=== PATIENT | male | born 1955 | race Caucasian/White ===

== ENCOUNTER 2024-08-13 17:31 | Inpatient (IN) ==
--- NOTE | 2024-08-13 17:58 | Emergency Department Note ---
Impression & Plan Stroke-like symptoms ED Provider Note HISTORY OF PRESENT ILLNESS: Patient is a 68-year-old male presenting with right sided weakness and dysphagia. Patient reports that 4 days ago he started having some shortness of breath and in the evening 4 days ago he started noticing some difficulties with using his right upper extremity. He states that he had a headache and pain behind his left eye at the time and took 2 Tylenol and went to bed. He woke up and was having difficulties moving his right upper and right lower extremity. He is also had difficulties getting words out over the last 3 days. He states that he has had difficulty swallowing as he feels like his secretions get stuck in his throat and he ends up bringing them back up. He has been slurring his speech per family at bedside. Patient denies ever having a stroke before. Denies any DVT or PE history. Denies any history of cardiac stents. He is not on any anticoagulation or antiplatelet therapy. He was brought to the ER by family, as they grew concerned due to his persistent symptoms. Patient denies any recent head injuries or chiropractic manipulation of his neck. Denies any recent fevers. He reports he is felt short of breath for the last 4 days since all of this started. ROS: as above PHYSICAL EXAM: Constitutional: Patient appears in no acute distress. HENT: Head: Normocephalic and atraumatic. Eyes: EOMI, PERRL Mouth/Throat: Mucous membranes moist. Neck: Trachea midline. Neck supple. Cardiovascular: RRR, No murmurs, rubs or gallops. Intact distal pulses. Pulmonary/Chest: No respiratory distress. Breath sounds clear and equal bilaterally. No wheezes or rales. Abdominal: Abdomen soft, no tenderness, rebound or guarding. Musculoskeletal: No edema, tenderness or deformity noted. Skin: Warm and dry. No rash, erythema, pallor or cyanosis Psychiatric: Appropriate mood and affect for situation. Neurological: Alert and keenly responsive. Slurred speech. Left lower facial droop. RUE with drift. RLE with significant drift to bed. Sensation in RLE decreased as compared to LLE. MDM: - Vitals signs showed hypertension and tachycardia - History obtained via patient. History as above. - Chronic conditions affecting care: none - Differential diagnoses include, but are not limited to: CVA; intracranial hemorrhage; ACS; viral syndrome; dysrhythmia; electrolyte abnormality - Order placed for continuous cardiac monitoring. At this time, monitor showed rate of 105 bpm with normal sinus rhythm, per my interpretation. - External medical records reviewed. - EKG interpreted by myself showed normal sinus rhythm. Rate 98 bpm. QT 354. No acute ischemic changes - Laboratory workup interpreted by myself showed normal WBC; normal PT/INR; slight hyponatremia (Na 135); hyperglycemia (glucose 248); normal procalcitonin; normal troponin - CXR negative for pneumonia, per my interpretation. - CT head wo contrast negative for acute pathology, per radiology - CTA head/neck negative for acute pathology, per radiology. - UA negative for infection - Patient's examination is significantly concerning for stroke. However, he is 3 days post onset of symptoms. As such, he is not a tPA or TNK candidate. Will admit to hospital service for further workup. An MRI of the brain was ordered. Patient was hypertensive during his stay in the emergency department. Given that he is 3 days out from his presumed stroke, he was given 10 mg of IV hydralazine for further blood pressure management. - Discussion was had with insurance case manager about patient's case and need for admission - Hospitalist, Dr. Thomson, consulted for admission - [facility] ASSESSMENT AND PLAN: Diagnosis: Strokelike symptoms Plan: Admit Past Med/Surg History Problem List (Updated 08/13/24 @ 21:39 by Cinda Atkins MD) Stroke-like symptoms (Acute) Fracture of right tibial plateau (Acute) Social History Smoking Status: Former smoker Preferred Language: [place] Feels Safe at Home: Yes Allergies Allergies Allergy/AdvReac Type Severity Reaction Status Date / Time No Known Allergies Allergy Unknown Verified 08/13/24 20:01 Home Meds Home Medications Medication Instructions Recorded Confirmed No Known Home Medications 08/13/24 08/13/24 Results & Data (ED) Vital Signs Vital Signs - 24 hr 08/13/24 17:33 08/13/24 17:34 08/13/24 17:43 Temperature 36.6 C Temperature Source Temporal Artery Scan Pulse Rate 106 H Pulse Rate [Apical] Pulse Rate from SpO2 Sensor Pulse Rhythm Regular Pulse Strength Normal Respiratory Rate 20 Respiratory Effort / Characteristics Non-Labored Respiratory Depth Normal Respiratory Pattern Regular Blood Pressure 169/103 H 192/111 H Blood Pressure [Left Arm] Blood Pressure Mean 125 146 Blood Pressure Mean [Left Arm] Blood Pressure Position Sitting Pulse Oximetry 96 Oxygen Delivery Method Room Air Room Air Sepsis Recent Fever Within 48 Hours No Sepsis New/Unexplained Change in Mental Status No Sepsis Action Taken by Nursing No Action Required 08/13/24 17:43 08/13/24 17:45 08/13/24 17:48 Temperature Temperature Source Pulse Rate 99 H Pulse Rate [Apical] Pulse Rate from SpO2 Sensor 99 H Pulse Rhythm Pulse Strength Respiratory Rate 26 H Respiratory Effort / Characteristics Respiratory Depth Respiratory Pattern Blood Pressure 192/111 H Blood Pressure [Left Arm] Blood Pressure Mean 146 Blood Pressure Mean [Left Arm] Blood Pressure Position Pulse Oximetry 95 Oxygen Delivery Method Room Air Sepsis Recent Fever Within 48 Hours Sepsis New/Unexplained Change in Mental Status Sepsis Action Taken by Nursing 08/13/24 17:59 08/13/24 18:00 08/13/24 18:42 Temperature Temperature Source Pulse Rate 96 H 95 H 71 Pulse Rate [Apical] Pulse Rate from SpO2 Sensor 95 H 81 Pulse Rhythm Pulse Strength Respiratory Rate 31 H 14 Respiratory Effort / Characteristics Respiratory Depth Respiratory Pattern Blood Pressure Blood Pressure [Left Arm] Blood Pressure Mean Blood Pressure Mean [Left Arm] Blood Pressure Position Pulse Oximetry 94 93 Oxygen Delivery Method Room Air Sepsis Recent Fever Within 48 Hours Sepsis New/Unexplained Change in Mental Status Sepsis Action Taken by Nursing 08/13/24 21:23 Temperature Temperature Source Pulse Rate Pulse Rate [Apical] 76 Pulse Rate from SpO2 Sensor Pulse Rhythm Pulse Strength Respiratory Rate 18 Respiratory Effort / Characteristics Non-Labored Spontaneous Respiratory Depth Normal Respiratory Pattern Regular Blood Pressure Blood Pressure [Left Arm] 186/105 H Blood Pressure Mean Blood Pressure Mean [Left Arm] 132 Blood Pressure Position Pulse Oximetry 96 Oxygen Delivery Method Room Air Sepsis Recent Fever Within 48 Hours Sepsis New/Unexplained Change in Mental Status Sepsis Action Taken by Nursing Laboratory Data 08/13/24 17:58 08/13/24 17:58 Lab Results 08/13/24 08/13/24 08/13/24 Range/Units 17:58 18:00 21:06 WBC 7.75 (4.8-10.8) K/ul RBC 5.12 (4.70-6.10) M/uL Hgb 15.4 (14.0-18.0) g/dl POC Hgb 15.6 (14.0-18.0) g/dl Hct 44.0 (42.0-52.0) % POC Hct 46 (42-52) % MCV 85.9 (80.0-100.0) fL MCH 30.1 (25.0-34.0) pg MCHC 35.0 (32.0-36.0) g/dL RDW Std Deviation 39.8 (36.4-46.3) fL RDW Coeff of Candace 12.6 (11.5-14.5) % Plt Count 194 (130-400) K/uL MPV 9.5 (9.4-12.4) fL Immature Gran % (Auto) 0.3 % Neut % (Auto) 53.2 % Lymph % (Auto) 34.6 % [place] % (Auto) 9.5 % Eos % (Auto) 1.2 % Baso % (Auto) 1.2 % Neut # (Auto) 4.13 (1.40-6.50) K/uL Lymph # (Auto) 2.68 (1.20-3.40) K/uL [place] # (Auto) 0.74 H (0.11-0.59) K/uL Eos # (Auto) 0.09 (0.00-0.50) K/uL Baso # (Auto) 0.09 (0.00-0.20) K/uL Immature Gran # (Auto) 0.02 (0.01-0.20) K/uL PT 10.8 (9.0-12.0) Seconds INR 1.0 (0.9-1.1) POC Sodium 138 (135-144) mmol/L Sodium 135 L (136-145) mmol/L POC Potassium 3.6 (3.3-5.0) mmol/L Potassium 3.5 (3.5-5.1) mmol/L POC Chloride 102 (101-112) mmol/L Chloride 101 (98-107) mmol/L Carbon Dioxide 24 (21-32) mmol/L POC Total CO2 24 (24-31) mmol/L Anion Gap 10 (3-11) POC Anion Gap 16.0 (16-25) mmol/L POC BUN 12 (7-18) mg/dl BUN 13 (6-23) mg/dl Creatinine 0.81 (0.6-1.4) mg/dl POC Creatinine 0.8 (0.6-1.3) mg/dl Est Cr Clr Drug Dosing Not Reportable Est GFR ( Amer) 106.6 ml/min Est GFR (Non-Af Amer) 92.0 ml/min BUN/Creatinine Ratio 16.0 (10-20) Glucose 248 H (70-99(Fasting)) mg/dl POC Glucose (other) 253 H (70-99) mg/dl Calcium 9.2 (8.6-10.3) mg/dl POC Ioniz Calcium [place] 1.13 (1.12-1.32) mmol/l Magnesium 1.8 (1.7-2.4) mg/dl Total Bilirubin 0.6 (0.2-1.0) mg/dl AST 21 (13-39) U/L ALT 24 (7-52) U/L Alkaline Phosphatase 75 (34-104) U/L Troponin I High Sens 6.0 (0-20) pg/ml Total Protein 8.2 (6.0-8.3) gm/dl Albumin 4.2 (3.4-5.0) gm/dl Globulin 4.0 (2.5-4.0) gm/dl Albumin/Globulin Ratio 1.1 (0.9-2) Procalcitonin < 0.02 (0-0.5) ng/ml Urine Color Yellow Urine Appearance Clear (Clear) Urine pH 5.5 (4.5-7.5) Ur Specific [place] > 1.045 H (1.000-1.030) Urine Protein Negative (Negative) Urine Glucose (UA) Negative (Negative) Urine Ketones Negative (Negative) Urine Blood Negative (Negative) Urine Nitrite Negative (Negative) Urine Bilirubin Negative (Negative) Urine Urobilinogen Negative (Negative) Ur Leukocyte Esterase Negative (Negative) Administered Medications Discontinued Medications Hydralazine HCl (Hydralazine Hcl 20 Mg/Ml Vial) 10 mg IV NOW STA Stop: 08/13/24 20:45 Last Admin: 08/13/24 21:20 Dose: 10 mg Documented By: DARIN Ioversol (Optiray 320 125ml) 119 ml IV ONCE ONE Stop: 08/13/24 19:12 Last Admin: 08/13/24 19:12 Dose: 119 ml Documented By: CHEY Imaging Data Radiologist's Impression: Chest X-Ray 08/13/24 17:45 XR chest 1V portable HISTORY: 68 years-old Male Dyspnea acute shortness of breath COMPARISON: 07/20/2015 TECHNIQUE: AP view of the chest FINDINGS: Cardiac silhouette is enlarged. Chronic interstitial coarsening. Calcified granuloma in the lateral right midlung. Emphysema. No pneumothorax, pleural effusion or lobar airspace consolidation. Chronic appearing mid left clavicular fracture deformity. IMPRESSION: 1. Cardiomegaly without overt pulmonary edema. 2. Chronic interstitial lung disease. 3. Prior granulomatous disease. ACT 112: Negative or not required by law. The above report was generated using voice recognition software. It may contain grammatical, syntax or spelling errors. Electronically signed by: oRe Miller M.D. 08/13/2024 6:[address] 08/13/24 17:45 Exam(s): CT HEAD Without Contrast EXAM: CT Head Without Intravenous Contrast CLINICAL HISTORY: Reason for exam: R sided weakness. TECHNIQUE: Axial computed tomography images of the head/brain without intravenous contrast. CTDI is 37.42 mGy and DLP is 702.46 mGy-cm. Automated exposure control was utilized for the study. A dose lowering technique was utilized adhering to the principles of ALARA. COMPARISON: None FINDINGS: Brain: No acute infarct or hemorrhage identified. No extra-axial fluid collection. No mass effect or midline shift. Scattered areas of hypoattenuation in the supratentorial white matter likely represent chronic small vessel ischemic changes. Calcifications in the basal ganglia. Ventricles and sulci: Prominence of the ventricles and sulci is likely secondary to cerebral volume loss. Bones: Normal. No bony lesion or acute fracture. Subcutaneous tissues: Normal. Sinuses: Polyp versus mucous retention cyst in the right maxillary sinus. Mastoid air cells: Normal. Orbits: Grossly unremarkable. Other: Atherosclerotic calcifications in the intracranial vasculature. IMPRESSION: 1. No acute intracranial abnormality. Further evaluation could be performed with MRI if clinically indicated. 2. Chronic small vessel ischemic changes and cerebral volume loss. Electronically signed by: Feliciano Cobb M.D. 08/13/24 19:49 PM Head CTA 08/13/24 17:54 Exam(s): CTA HEAD With Contrast IV Amt: 119ml EXAM: CT Angiography Head With Intravenous Contrast CLINICAL HISTORY: Reason for exam: stroke sx - R weakness; L facial droop; dysphagia. TECHNIQUE: Axial computed tomographic angiography images of the head with intravenous contrast. CTDI is 20.76 mGy and DLP is 10.38 mGy-cm. Automated exposure control was utilized for the study. A dose lowering technique was utilized adhering to the principles of ALARA. CONTRAST: Patient received 119ml of IV contrast COMPARISON: None FINDINGS: Right internal carotid artery: Atherosclerotic changes of the distal right ICA. No significant stenosis. No aneurysm. Right anterior cerebral artery: Unremarkable. No occlusion or significant stenosis. No aneurysm. Right middle cerebral artery: Unremarkable. No occlusion or significant stenosis. No aneurysm. Right posterior cerebral artery: Unremarkable. No occlusion or significant stenosis. No aneurysm. Right vertebral artery: Atherosclerotic calcification in the V4 segment of the right vertebral artery. No significant stenosis. Left internal carotid artery: Atherosclerotic changes of the distal left ICA. No significant stenosis. No aneurysm. Left anterior cerebral artery: Unremarkable. No occlusion or significant stenosis. No aneurysm. Left middle cerebral artery: Unremarkable. No occlusion or significant stenosis. No aneurysm. Left posterior cerebral artery: Unremarkable. No occlusion or significant stenosis. No aneurysm. Left vertebral artery: Atherosclerotic calcifications of the V4 segment of the left vertebral artery. No significant stenosis. Basilar artery: Unremarkable. No occlusion or significant stenosis. No aneurysm. Sinuses: Polyp versus mucous retention cyst in the right maxillary sinus. IMPRESSION: No significant stenosis, occlusion, or aneurysm in the central or large intracranial arteries. Electronically signed by: Feliciano Cobb M.D. 08/13/24 21:32 PM Neck CTA 08/13/24 17:54 Exam(s): CTA NECK With Contrast IV Amt: 119ml EXAM: CT Angiography Neck With Intravenous Contrast CLINICAL HISTORY: Reason for exam: stroke sx - R weakness; L facial droop; dysphagia. TECHNIQUE: Routine carotid CT angiography protocol was performed with intravenous contrast. NASCET criteria using the distal ICAs for comparison were used for evaluation of stenoses. CTDI is 13.87 mGy and DLP is 534.41 mGy-cm. Automated exposure control was utilized for the study. A dose lowering technique was utilized adhering to the principles of ALARA. CONTRAST: Patient received 119ml of IV contrast COMPARISON: None FINDINGS: VASCULATURE: Right common carotid artery: Unremarkable. No occlusion or significant stenosis. No dissection. Right internal carotid artery: Atherosclerotic calcifications of the right carotid bulb and proximal right ICA. No significant stenosis. No dissection. Right external carotid artery: Unremarkable. No occlusion. Right vertebral artery: Unremarkable. No occlusion or significant stenosis. No dissection. Left common carotid artery: Unremarkable. No occlusion or significant stenosis. No dissection. Left internal carotid artery: Mild atherosclerotic calcification in the proximal left ICA. No significant stenosis. No dissection. Left external carotid artery: Unremarkable. No occlusion. Left vertebral artery: Unremarkable. No occlusion or significant stenosis. No dissection. Aorta: Mild atherosclerotic changes in the aorta. NECK: Bones/joints: Degenerative changes of the spine. No acute fracture. Soft tissues: Unremarkable. Lung apices: Atelectasis and paraseptal emphysematous changes in the visualized upper lungs. CAROTID STENOSIS REFERENCE USING NASCET CRITERIA: % ICA stenosis = (1 - narrowest ICA diameter/diameter of distal cervical ICA) x 100. Mild - <50% stenosis. Moderate - 50-69% stenosis. Severe - 70-94% stenosis. Near occlusion - 95-99% stenosis. Occluded - 100% stenosis. IMPRESSION: No significant stenosis, occlusion, or dissection. Electronically signed by: Feliciano Cobb M.D. 08/13/24 21:30 PM Discharge Plan Visit Data Chief Complaint: Shortness of Breath/Dyspnea Stated Complaint: SOB/WEAKNESS RT SIDE ED Provider: Cinda Atkins Discharge Problem: Stroke-like symptoms Forms Stand Alone Forms: My [employer] Prescriptions Prescriptions: No Action No Known Home Medications Referrals Referrals: Amy Ramsey MD [Outside Practitioners] -
[2024-08-13 18:13] LABS: iSTAT Creatinine 0.8 mg/dl (0.6-1.3); iSTAT Hemoglobin 15.6 g/dl (14.0-18.0); iSTAT Ionized Calcium 1.13 mmol/l (1.12-1.32); iSTAT Potassium 3.6 mmol/L (3.3-5.0)
[2024-08-13 18:33] LABS: Basophils # (auto) 0.09 K/uL (0.00-0.20); Basophils % (auto) 1.2 %; Eosinophils # (auto) 0.09 K/uL (0.00-0.50); Eosinophils % (auto) 1.2 %; Hemoglobin 15.4 g/dl (14.0-18.0); Immature Granulocytes # (auto) 0.02 K/uL (0.01-0.20); Immature Granulocytes % (auto) 0.3 %; Lymphocytes # (auto) 2.68 K/uL (1.20-3.40); Lymphocytes % (auto) 34.6 %; Mean Corpuscular Hemoglobin 30.1 pg (25.0-34.0); Mean Corpuscular Volume 85.9 fL (80.0-100.0); Mean Platelet Volume 9.5 fL (9.4-12.4); Monocytes # (auto) 0.74 K/uL (0.11-0.59); Monocytes % (auto) 9.5 %; Neutrophils # (auto) 4.13 K/uL (1.40-6.50); Neutrophils % (auto) 53.2 %; Platelet Count 194 K/uL (130-400); RDW Coefficient of Variation 12.6 % (11.5-14.5); RDW Standard Deviation 39.8 fL (36.4-46.3); Red Blood Count 5.12 M/uL (4.70-6.10); White Blood Count 7.75 K/ul (4.8-10.8)
--- NOTE | 2024-08-13 18:48 | XRay Report ---
XR chest 1V portable HISTORY: 68 years-old Male Dyspnea acute shortness of breath COMPARISON: 07/20/2015 TECHNIQUE: AP view of the chest FINDINGS: Cardiac silhouette is enlarged. Chronic interstitial coarsening. Calcified granuloma in the lateral r ight midlung. Emphysema. No pneumothorax, pleural effusion or lobar airspace consolidation. Chronic a ppearing mid left clavicular fracture deformity. IMPRESSION: 1. Cardiomegaly without overt pulmonary edema. 2. Chronic interstitial lung disease. 3. Prior granulomatous disease. ACT 112: Negative or not required by law. The above report was generated using voice recognition software. It may contain grammatical, syntax o r spelling errors. Electronically signed by: Roe Miller M.D. 08/13/2024 6:47 PM
[2024-08-13 18:49] LABS: Alanine Aminotransferase 24 U/L (7-52); Albumin Globulin Ratio 1.1 (0.9-2); Albumin Level 4.2 gm/dl (3.4-5.0); Alkaline Phosphatase 75 U/L (34-104); Anion Gap 10 (3-11); Aspartate Aminotransferase 21 U/L (13-39); Bilirubin,Total 0.6 mg/dl (0.2-1.0); Blood Urea Nitrogen 13 mg/dl (6-23); Calcium 9.2 mg/dl (8.6-10.3); Carbon Dioxide 24 mmol/L (21-32); Chloride 101 mmol/L (98-107); Est GFR (African American) 106.6 ml/min; Glucose 248 mg/dl (70-99(Fasting)); Magnesium 1.8 mg/dl (1.7-2.4); Potassium 3.5 mmol/L (3.5-5.1); Sodium 135 mmol/L (136-145); Total Protein 8.2 gm/dl (6.0-8.3)
[2024-08-13 19:05] LABS: Prothrombin Time 10.8 Seconds (9.0-12.0)
[2024-08-13] MEDS: OPTIRAY 320 125ml IV ONE (19:12)
--- NOTE | 2024-08-13 19:50 | CT Scan Report ---
Exam(s): CT HEAD Without Contrast EXAM: CT Head Without Intravenous Contrast CLINICAL HISTORY: Reason for exam: R sided weakness. TECHNIQUE: Axial computed tomography images of the head/brain without intravenous contrast. CTDI is 37.42 mGy and DLP is 702.46 mGy-cm. Automated exposure control was utilized for the study. A dose lowering technique was utilized adhering to the principles of ALARA. COMPARISON: None FINDINGS: Brain: No acute infarct or hemorrhage identified. No extra-axial fluid collection. No mass effect or midline shift. Scattered areas of hypoattenuation in the supratentorial white matter likely represent chronic small vessel ischemic changes. Calcifications in the basal ganglia. Ventricles and sulci: Prominence of the ventricles and sulci is likely secondary to cerebral volume loss. Bones: Normal. No bony lesion or acute fracture. Subcutaneous tissues: Normal. Sinuses: Polyp versus mucous retention cyst in the right maxillary sinus. Mastoid air cells: Normal. Orbits: Grossly unremarkable. Other: Atherosclerotic calcifications in the intracranial vasculature. IMPRESSION: 1. No acute intracranial abnormality. Further evaluation could be performed with MRI if clinically indicated. 2. Chronic small vessel ischemic changes and cerebral volume loss. Electronically signed by: Feliciano Cobb M.D. 08/13/24 19:49 PM
--- NOTE | 2024-08-13 21:09 | History & Physical Report ---
Date of Service August 13, 2024 Assessment & Plan (1) Stroke-like symptoms: Plan: CT Head without acute stroke. CTA Head and Neck without significant stenosis. MRI pending. History and physical consistent with left sided stroke with right sided deficits. Outside of the window for thrombolysis. Given ASA 324 chew and Brilinta load. DAPT for 21 days. Start high intensity statin. Likely will need blood sugar control as well as blood pressure control. Start olmesartan 10 mg can up-titrate for a goal BP < 130/90. f/u MRI, consider neurology consult based on results lipids, HbA1c ordered dysphagia screen, LEAD INSPECTOR consult SQ insulin ordered, goal 140-180 PT/OT ordered, likely will need rehab placement (2) IFG (impaired fasting glucose): Plan: See above (3) Hypertension: Plan: See above Plan Code status: full DVT ppx: ASA Brilinta FENGI: NPO until passes dysphagia screening, then heart healthy diet, mIVF with LR @ 100 mL/hr x 1L Dispo: PCU/tele History of Present Illness Chief Complaint: stroke like symptoms Primary Care Provider: NO PCP 68 y/o male with a PMHx of Crohn's disease s/p partial colectomy and colostomy reversal here for evaluation of right sided deficits. Patient with right sided weakness, facial droop, headache, trouble swallowing/speaking, and "eye cold" started Sunday. Last known well was earlier that day. Has had some improvement in right arm symptoms and facial droop - still present but slightly improved. Unable to lift right leg. Sensation intact. Headache and "eye cold" have resolved. Patient stopped smoking and drinking about 20 years ago. Has not seen a doctor in some time. Has known hypertension which has not been treated with any medications. Allergies Allergy/AdvReac Type Severity Reaction Status Date / Time No Known Allergies Allergy Unknown Verified 08/13/24 20:01 Home Medications Medication Instructions Recorded Confirmed Type No Known Home Medications 08/13/24 08/13/24 History Past Med/Surg History Problem List (Updated 08/13/24 @ 22:12 by Luz Stinson MD) Hypertension IFG (impaired fasting glucose) Stroke-like symptoms (Acute) Fracture of right tibial plateau (Acute) Social History Smoking Status: Former smoker Preferred Language: Portuguese Feels Safe at Home: Yes Review of Systems 2 Review of Systems: See HPi Physical Exam 2 Physical Exam: Gen: well appearing patient in NAD, slight slur to speech HEENT: AT NC MMM Resp: CTAB no wheezing no increased work of breathing CV: RRR no m/r/g clinically well perfused Abd: soft, non-tender, non-distended MSK: no obvious deformities Skin: no rashes or bruising Neuro: speech is slightly slurred, does appear to be protecting his airway, PERRL, EOMI, able to puff cheeks, raise eyebrows, and smile with relative symmetry, slightly decreased right side, strength 0/5 RLE, 3.5/5 RUE, sensation intact, well perfused Psych: appropriate mood and affect Results & Data Results & Data Vital Signs (Past 12 Hours) Vital Signs Temp Pulse Resp BP Pulse Ox O2 Del Method 08/13/24 18:42 71 14 93 Room Air 08/13/24 18:00 95 H 31 H 94 08/13/24 17:59 96 H 08/13/24 17:48 99 H 26 H 95 08/13/24 17:45 Room Air 08/13/24 17:43 192/111 H 08/13/24 17:43 192/111 H 08/13/24 17:34 36.6 C 106 H 20 169/103 H 96 Room Air 08/13/24 17:33 Room Air Laboratory Results 08/13/24 17:58 08/13/24 17:58 Diagnostic Findings Chest X-Ray 08/13/24 17:45 FINDINGS: Cardiac silhouette is enlarged. Chronic interstitial coarsening. Calcified granuloma in the lateral right midlung. Emphysema. No pneumothorax, pleural effusion or lobar airspace consolidation. Chronic appearing mid left clavicular fracture deformity. IMPRESSION: 1. Cardiomegaly without overt pulmonary edema. 2. Chronic interstitial lung disease. 3. Prior granulomatous disease. ACT 112: Negative or not required by law. Head CT 08/13/24 17:45 FINDINGS: Brain: No acute infarct or hemorrhage identified. No extra-axial fluid collection. No mass effect or midline shift. Scattered areas of hypoattenuation in the supratentorial white matter likely represent chronic small vessel ischemic changes. Calcifications in the basal ganglia. Ventricles and sulci: Prominence of the ventricles and sulci is likely secondary to cerebral volume loss. Bones: Normal. No bony lesion or acute fracture. Subcutaneous tissues: Normal. Sinuses: Polyp versus mucous retention cyst in the right maxillary sinus. Mastoid air cells: Normal. Orbits: Grossly unremarkable. Other: Atherosclerotic calcifications in the intracranial vasculature. IMPRESSION: 1. No acute intracranial abnormality. Further evaluation could be performed with MRI if clinically indicated. 2. Chronic small vessel ischemic changes and cerebral volume loss. Head CTA 08/13/24 17:54 FINDINGS: Right internal carotid artery: Atherosclerotic changes of the distal right ICA. No significant stenosis. No aneurysm. Right anterior cerebral artery: Unremarkable. No occlusion or significant stenosis. No aneurysm. Right middle cerebral artery: Unremarkable. No occlusion or significant stenosis. No aneurysm. Right posterior cerebral artery: Unremarkable. No occlusion or significant stenosis. No aneurysm. Right vertebral artery: Atherosclerotic calcification in the V4 segment of the right vertebral artery. No significant stenosis. Left internal carotid artery: Atherosclerotic changes of the distal left ICA. No significant stenosis. No aneurysm. Left anterior cerebral artery: Unremarkable. No occlusion or significant stenosis. No aneurysm. Left middle cerebral artery: Unremarkable. No occlusion or significant stenosis. No aneurysm. Left posterior cerebral artery: Unremarkable. No occlusion or significant stenosis. No aneurysm. Left vertebral artery: Atherosclerotic calcifications of the V4 segment of the left vertebral artery. No significant stenosis. Basilar artery: Unremarkable. No occlusion or significant stenosis. No aneurysm. Sinuses: Polyp versus mucous retention cyst in the right maxillary sinus. IMPRESSION: No significant stenosis, occlusion, or aneurysm in the central or large intracranial arteries. Neck CTA 08/13/24 17:54 FINDINGS: VASCULATURE: Right common carotid artery: Unremarkable. No occlusion or significant stenosis. No dissection. Right internal carotid artery: Atherosclerotic calcifications of the right carotid bulb and proximal right ICA. No significant stenosis. No dissection. Right external carotid artery: Unremarkable. No occlusion. Right vertebral artery: Unremarkable. No occlusion or significant stenosis. No dissection. Left common carotid artery: Unremarkable. No occlusion or significant stenosis. No dissection. Left internal carotid artery: Mild atherosclerotic calcification in the proximal left ICA. No significant stenosis. No dissection. Left external carotid artery: Unremarkable. No occlusion. Left vertebral artery: Unremarkable. No occlusion or significant stenosis. No dissection. Aorta: Mild atherosclerotic changes in the aorta. NECK: Bones/joints: Degenerative changes of the spine. No acute fracture. Soft tissues: Unremarkable. Lung apices: Atelectasis and paraseptal emphysematous changes in the visualized upper lungs. IMPRESSION: No significant stenosis, occlusion, or dissection. Supervising Physician Co-Signing Physician Notes Attending addendum: I have physically seen this patient, have supervised the medical residents activities, and agree with the H&P unless as otherwise noted. Assessment and Plan: Strokelike symptoms- The patient will be admitted to telemetry for serial cardiac enzymes, serial EKG's, cardiac rhythm monitoring and a 2-D echocardiogram with Dopplers. CT head without contrast reveals no acute stroke, does show chronic small vessel disease CTA head without acute findings MRI brain ordered and pending Patient with left-sided stroke resulting in right-sided deficits Not a TNK candidate due to last known well time Aspirin and Brilinta as noted Stroke without thrombolytic order set Check a fasting lipid panel and Hemoglobin A1c LR at 100 mL/h x 1 L Consult PT/OT/speech and neurology Impaired fasting glucose/hyperglycemia- Glucose 248 on admission Check hemoglobin A1c Placed on Accu-Cheks with NovoLog SSI Hyperlipidemia- Check a fasting lipid panel To start high-dose statin Hypertension- To start on losartan as noted Resident Activity Tracking Resident Involvement: Resident Care Provided Care Provided: Adult [facility]
[2024-08-13] MEDS: hydrALAZINE HCL 20 MG/ML VIAL IV STA (21:20)
--- NOTE | 2024-08-13 21:31 | CT Scan Report ---
Exam(s): CTA NECK With Contrast IV Amt: 119ml EXAM: CT Angiography Neck With Intravenous Contrast CLINICAL HISTORY: Reason for exam: stroke sx - R weakness; L facial droop; dysphagia. TECHNIQUE: Routine carotid CT angiography protocol was performed with intravenous contrast. NASCET criteria using the distal ICAs for comparison were used for evaluation of stenoses. CTDI is 13.87 mGy and DLP is 534.41 mGy-cm. Automated exposure control was utilized for the study. A dose lowering technique was utilized adhering to the principles of ALARA. CONTRAST: Patient received 119ml of IV contrast COMPARISON: None FINDINGS: VASCULATURE: Right common carotid artery: Unremarkable. No occlusion or significant stenosis. No dissection. Right internal carotid artery: Atherosclerotic calcifications of the right carotid bulb and proximal right ICA. No significant stenosis. No dissection. Right external carotid artery: Unremarkable. No occlusion. Right vertebral artery: Unremarkable. No occlusion or significant stenosis. No dissection. Left common carotid artery: Unremarkable. No occlusion or significant stenosis. No dissection. Left internal carotid artery: Mild atherosclerotic calcification in the proximal left ICA. No significant stenosis. No dissection. Left external carotid artery: Unremarkable. No occlusion. Left vertebral artery: Unremarkable. No occlusion or significant stenosis. No dissection. Aorta: Mild atherosclerotic changes in the aorta. NECK: Bones/joints: Degenerative changes of the spine. No acute fracture. Soft tissues: Unremarkable. Lung apices: Atelectasis and paraseptal emphysematous changes in the visualized upper lungs. CAROTID STENOSIS REFERENCE USING NASCET CRITERIA: % ICA stenosis = (1 - narrowest ICA diameter/diameter of distal cervical ICA) x 100. Mild - <50% stenosis. Moderate - 50-69% stenosis. Severe - 70-94% stenosis. Near occlusion - 95-99% stenosis. Occluded - 100% stenosis. IMPRESSION: No significant stenosis, occlusion, or dissection. Electronically signed by: Feliciano Cobb M.D. 08/13/24 21:30 PM
[2024-08-13 21:32] LABS: Appearance Urine Clear (Clear); Bilirubin Urine Negative (Negative); Blood Urine Negative (Negative); Color Urine Yellow; Glucose Urine UA Negative (Negative); Ketones Urine Negative (Negative); Leukocyte Esterase Urine Negative (Negative); Nitrite Urine Negative (Negative); Protein Urine Negative (Negative); Specific Gravity Urine > 1.045 (1.000-1.030); Urobilinogen Urine Negative (Negative); pH Urine 5.5 (4.5-7.5)
--- NOTE | 2024-08-13 21:34 | CT Scan Report ---
Exam(s): CTA HEAD With Contrast IV Amt: 119ml EXAM: CT Angiography Head With Intravenous Contrast CLINICAL HISTORY: Reason for exam: stroke sx - R weakness; L facial droop; dysphagia. TECHNIQUE: Axial computed tomographic angiography images of the head with intravenous contrast. CTDI is 20.76 mGy and DLP is 10.38 mGy-cm. Automated exposure control was utilized for the study. A dose lowering technique was utilized adhering to the principles of ALARA. CONTRAST: Patient received 119ml of IV contrast COMPARISON: None FINDINGS: Right internal carotid artery: Atherosclerotic changes of the distal right ICA. No significant stenosis. No aneurysm. Right anterior cerebral artery: Unremarkable. No occlusion or significant stenosis. No aneurysm. Right middle cerebral artery: Unremarkable. No occlusion or significant stenosis. No aneurysm. Right posterior cerebral artery: Unremarkable. No occlusion or significant stenosis. No aneurysm. Right vertebral artery: Atherosclerotic calcification in the V4 segment of the right vertebral artery. No significant stenosis. Left internal carotid artery: Atherosclerotic changes of the distal left ICA. No significant stenosis. No aneurysm. Left anterior cerebral artery: Unremarkable. No occlusion or significant stenosis. No aneurysm. Left middle cerebral artery: Unremarkable. No occlusion or significant stenosis. No aneurysm. Left posterior cerebral artery: Unremarkable. No occlusion or significant stenosis. No aneurysm. Left vertebral artery: Atherosclerotic calcifications of the V4 segment of the left vertebral artery. No significant stenosis. Basilar artery: Unremarkable. No occlusion or significant stenosis. No aneurysm. Sinuses: Polyp versus mucous retention cyst in the right maxillary sinus. IMPRESSION: No significant stenosis, occlusion, or aneurysm in the central or large intracranial arteries. Electronically signed by: Feliciano Cobb M.D. 08/13/24 21:32 PM
--- NOTE | 2024-08-13 23:42 | XRay Report ---
Exam(s): XR ORBITS EXAM: XR Orbits Foreign Body CLINICAL HISTORY: Reason for exam: Screening for foreign body for MRI. TECHNIQUE: Frontal and lateral view(s) of the orbits. COMPARISON: None FINDINGS: Bones/joints: Unremarkable. No acute fracture. Sinuses: Opacity in the right maxillary sinus may represent mucosal thickening and/or fluid. Soft tissues: Unremarkable. No radiopaque foreign body identified. IMPRESSION: No radiopaque foreign body identified. Electronically signed by: Feliciano Cobb M.D. 08/13/24 23:41 PM
[2024-08-14] MEDS ORDERED: GLUCOSE 10 TAB/TUBE PO PRN (00:22)
[2024-08-14] MEDS ORDERED: GLUCOSE 40% GEL 15 GM TUBE PO PRN (00:22)
[2024-08-14] MEDS ORDERED: PHARMACY GLYCEMIC MGMT CONSULT PRN (00:22)
[2024-08-14] MEDS ORDERED: PHARMACIST DISCHARGE MED REC CONSULT PRN (00:22)
[2024-08-14] MEDS ORDERED: CARBOHYDRATES FOR HYPOGLYCEMIA PO PRN (00:22)
[2024-08-14] MEDS ORDERED: GLUCAGON FOR INJ 1 MG VIAL SQ PRN (00:22)
[2024-08-14] MEDS ORDERED: DEXTROSE 50% 50 ML SYRINGE IV PRN (00:22)
[2024-08-14] MEDS: METOPROLOL TARTRATE 1 MG/ML VIAL IV PRN (00:44)
[2024-08-14] MEDS: LACTATED RINGER'S 1,000 ML IV SCH (00:46)
[2024-08-14] MEDS: Patient's HEIGHT &/or WEIGHT Needed ONE (01:10)
--- NOTE | 2024-08-14 03:23 | Billing Data ---
Date of Service August 14, 2024 Coding Level of Care Code 21252 INT INP/OBS CARE
[2024-08-14] MEDS: ASPIRIN 81 MG CHEW PO ONE (03:25)
[2024-08-14] MEDS: INSULIN ASPART PER UNIT CHARGE SC SCH ×2 (03:26→17:37)
[2024-08-14] MEDS: TICAGRELOR 90 MG TAB PO ONE (03:26)
[2024-08-14] MEDS: hydrALAZINE HCL 20 MG/ML VIAL IV STA (06:14)
[2024-08-14] MEDS: ONDANSETRON INJ 2 MG/ML 2 ML VIAL IV STA (06:15)
--- NOTE | 2024-08-14 06:52 | Magnetic Resonance Report ---
Exam(s): MRI HEAD Without Contrast EXAM: MR Head Without Intravenous Contrast CLINICAL HISTORY: Reason for exam: stroke like symptoms. TECHNIQUE: Magnetic resonance images of the head/brain without intravenous contrast in multiple planes. COMPARISON: No relevant prior studies available. FINDINGS: Brain: Acute infarction of the left anterior mitra with associated decreased signal on ADC mapping and T2/FLAIR prolongation reflective of cytotoxic edema. No evidence of hemorrhage within the infarction bed. Blooming artifact noted within the central mitra with additional foci of T2/FLAIR prolongation which likely relate to areas of additional infarction/hemorrhage. Scattered areas of blooming artifact within the bilateral temporal lobes, left parietal lobe, and right basal ganglia, likely reflective of sequela of prior microangiopathic bleeds. Abnormal T2 signal in the deep cerebral white matter is consistent with small vessel ischemic/degenerative changes. The cerebral and cerebellar sulci are prominent consistent with brain atrophy. Ventricles: Unremarkable. No ventriculomegaly. Bones/joints: Unremarkable. No acute fracture. Sinuses: Unremarkable as visualized. Mastoid air cells: Unremarkable as visualized. No mastoid effusion. Orbits: Unremarkable as visualized. IMPRESSION: 1. Acute infarction of the left anterior mitra with associated decreased signal on ADC mapping and T2/FLAIR prolongation reflective of cytotoxic edema. No evidence of hemorrhage within the infarction bed. 2. Blooming artifact noted within the central mitra with additional foci of T2/FLAIR prolongation which likely relate to areas of additional infarction/hemorrhage. 3. Scattered areas of blooming artifact within the bilateral temporal lobes, left parietal lobe, and right basal ganglia, likely reflective of sequela of prior microangiopathic bleeds. 4. Small vessel ischemic/degenerative changes. 5. Cerebral and cerebellar atrophy. Communications: Call Doctor Above results Electronically signed by: Ugo Telles MD 08/14/24 06:51 AM
[2024-08-14] MEDS ORDERED: TICAGRELOR 90 MG TAB PO SCH (09:00)
[2024-08-14] MEDS ORDERED: LOSARTAN POTASSIUM 25 MG TAB PO SCH (09:00)
[2024-08-14] MEDS: ROSUVASTATIN CALCIUM 20 MG TAB PO SCH (10:07)
--- NOTE | 2024-08-14 10:48 | Neurology Consultation ---
Date of Consultation August 14, 2024 Assessment & Plan (1) Left pontine stroke: (2) Cerebrovascular disease: (3) Cerebral amyloid angiopathy: Plan 68-year-old male presenting with an acute to subacute left anterior pontine ischemic stroke characterized by crossed motor deficit, left lower face, right leg greater than arm, and associated dysarthria and dysphagia. He is not followed with a physician in many years and does not take any medications regularly. He appears to have untreated hypertension and may have diabetes mellitus as well. He is a former smoker. He denies any prior history of stroke or TIA in spite of the finding of several chronic lacunar infarcts on his imaging. His MRI does reveal several small chronic microbleed's and he may have cerebral amyloid angiopathy. Although he does have extensive diffuse atherosclerotic disease on CT angiography of the head, he does not have any hemodynamically significant stenosis of either the vertebral or carotid arteries. He appears to have a normal sinus rhythm. No known history of atrial fibrillation. His lipid status is unknown, lipid panel results are pending. Given that he has several chronic cerebral microbleed's I would not recommend continuing with dual antiplatelet therapy. Would recommend aspirin 81 mg/day. I agree with starting rosuvastatin as ordered, goal LDL 70 or less. Permissive hypertension appropriate acutely, systolic blood pressure goal 140 to 160 mmHg. Further reductions in blood pressure may be made gradually as an outpatient. He may need additional management of possible diabetes mellitus as well. Hemoglobin A1c pending. Would recommend a transthoracic echocardiogram with bubble study as well as outpatient cardiac monitoring. Patient will need to establish with a primary care physician for ongoing monitoring of his cardiovascular status and risk factor management. Consultations with PT/OT/speech therapy. He should not require additional outpatient neurology follow-up. Please call with any questions. History of Present Illness Reason for Consultation: Stroke Requesting Physician: Tamara Attending Physician: Cielo Mcdonald MD History of Present Illness The patient is a 68-year-old male with a chief complaint of heaviness and weakness of the right leg and arm and associated dysarthria and episodes of choking. His symptoms began 4 days prior to his emergency department presentation and were characterized by a feeling of discomfort around the left eye that he noted prior to going to bed. The following morning, he awoke with weakness of the right hand, difficulty eating, and weakness of the right leg, was unable to stand very well. He also had associated slurred speech and began choking intermittently on his saliva, more so with prolonged speaking. He does not recall experiencing any vertigo or diplopia. He denies experiencing any associated numbness of the face or limbs. He does feel that his symptoms are stable to mildly improved this morning. He does not see a physician regularly, does not have a primary care doctor. He has a history of Crohn's disease that required colectomy many years ago, subsequently reversed. Is not on any particular treatment for Crohn's disease. He does not take any medications. He denies any prior history of stroke, strokelike episode, or TIA. A CT of the head was negative for hemorrhage or acute process. A CTA of the head and neck was negative for significant stenotic lesion or arterial dissection. There was diffuse atherosclerotic disease. An MRI of the brain reveals an acute ischemic infarct within the left anterior hemipons. There are several scattered areas of blooming artifact on GRE that may be consistent with chronic microbleed's, although some of these may be due to calcifications. I independently reviewed these images. He was given aspirin and Brilinta during his ED assessment. He now has prescriptions for Crestor and aspirin 81 mg/day. Allergies Allergy/AdvReac Type Severity Reaction Status Date / Time No Known Allergies Allergy Unknown Verified 08/13/24 20:01 Home Medications Medication Instructions Recorded Confirmed Type No Known Home Medications 08/13/24 08/13/24 History Patient History Social History Smoking Status: Former smoker Hx Alcohol Use: No Hx Substance Use: No Preferred Language: Slovenian Communication Ability: Effective Licensed Home Inspector Required: No Beliefs That Will Affect Care: None Current Living Situation: Spouse Other Information That Helps Us Care for You: No Feels Safe at Home: Yes Safety Concerns: Feels Safe At This Time Assistive Devices: None Review of Systems Constitutional: no fever and no chills Eyes: no blind spots and no diplopia Ear, Nose, Mouth, Throat: + hoarseness and + dysphagia; no hearing loss Respiratory: no cough and no dyspnea Cardiovascular: no chest pain and no palpitations Gastrointestinal: no nausea and no vomiting Genitourinary: no dysuria Musculoskeletal: no myalgia and no muscle weakness Integumentary: no rash and no lesions Neurologic: as per Subjective / HPI, + gait abnormality, + localized weakness and + abnormal speech; no loss of sensation, no tremor(s), no dizziness, no confusion and no memory loss Psychiatric: no depression and no anxiety Hematologic / Lymphatic: no easy bleeding and no easy bruising Exam (Neuro) Constitutional: well developed and well nourished; no acute distress Eyes: normal visual barnes by confrontation, PERRL and EOM intact bilaterally; no nystagmus Neurologic: Oriented to:: Person, Place and Time Memory: Short Term Intact and Remote Intact Attention: Span Intact and Concentration Intact Speech Fluency: negative Dysarthria or Dysfluency Speech Aphasia: negative Aphasia Fund of Knowledge: Current Events, Past History and Vocabulary Cranial Nerves: Normal II, III, IV, , V, VIII, IX, X, XI and XII; Abnorm VII (Mild weakness of the left lower face) Motor Strength: Hemiparesis Laterality: Right Motor Tone: Normal Lower Extremities and Normal Upper Extremities Muscle Bulk/Involuntary Movements: No Involuntary Movements; negative Muscle Atrophy Sensation: Light Touch Intact, Pain/Temperature Intact and Proprioception Intact Coordination: Limited Balance, Finger-Nose Abnormal Laterality: Right and Heel-Santana Abnormal Laterality: Right Deep Tendon Reflexes: Rt Triceps: 2+, Lt Triceps: 2+, Rt Biceps: 2+, Lt Biceps: 2+, Rt Bra chioradialis: 2+, Lt Brachioradialis: 2+, Rt Patellar: 2+, Lt Patellar: 2+, Rt Ankle: 3+ and Lt Ankle: 2+ Special Tests: Babinski Present (right) Gait: Hemiparetic Laterality: Right Details: Patient has a moderate right hemiplegia, leg greater than arm. Associated mild weakness of the left lower face (crossed pattern). His speech is modestly dysarthric. Results & Data Vital Signs (Past 12 Hours) Vital Signs Temp Pulse Pulse Resp BP BP Pulse Ox 08/14/24 08:45 08/14/24 08:02 36.5 C 77 18 176/80 H 96 08/14/24 07:26 70 08/14/24 06:30 63 18 177/81 H 97 08/14/24 05:50 72 20 187/96 H 97 08/14/24 03:21 36.6 C 73 18 154/83 H 93 08/14/24 01:00 67 170/91 H 08/14/24 00:44 78 188/92 H 08/14/24 00:22 08/14/24 00:22 36.5 C 71 18 177/87 H 95 08/14/24 00:22 82 08/13/24 22:46 O2 Del Method 08/14/24 08:45 Room Air 08/14/24 08:02 Room Air 08/14/24 07:26 08/14/24 06:30 Room Air 08/14/24 05:50 Room Air 08/14/24 03:21 Room Air 08/14/24 01:00 08/14/24 00:44 08/14/24 00:22 Room Air 08/14/24 00:22 Room Air 08/14/24 00:22 08/13/24 22:46 Room Air Laboratory Results WBC 7.75, hemoglobin 15.4, hematocrit 44.0, platelet count 194, sodium 138, potassium 3.5, BUN 13, creatinine 0.81, glucose 248, calcium 9.2, magnesium 1.8, AST 21, ALT 24, troponin 6.0, lipid panel pending Diagnostic Findings CTA of the head and neck and brain MRI are as described in the HPI, and independently reviewed these images. An electrocardiogram reveals a normal sinus rhythm, 98 bpm. Coding Level of Care Code 16326 INT INP/OBS CARE 375MIN Diagnoses Left pontine stroke I63.9 Cerebrovascular disease I67.9 Cerebral amyloid angiopathy E85.4; I68.0 Time Spent (min) 120 Comment Total time includes patient contact, chart review, counseling, note preparation
[2024-08-14 11:01] LABS: Basophils % (auto) 1.1 %; Eosinophils # (auto) 0.04 K/uL (0.00-0.50); Eosinophils % (auto) 0.4 %; Hematocrit (blood only) 45.1 % (42.0-52.0); Hemoglobin 16.1 g/dl (14.0-18.0); Immature Granulocytes # (auto) 0.03 K/uL (0.01-0.20); Immature Granulocytes % (auto) 0.3 %; Lymphocytes # (auto) 1.75 K/uL (1.20-3.40); Lymphocytes % (auto) 18.5 %; Mean Corpuscular Hemoglobin 29.9 pg (25.0-34.0); Mean Corpuscular Hgb Conc 35.7 g/dL (32.0-36.0); Mean Corpuscular Volume 83.8 fL (80.0-100.0); Mean Platelet Volume 9.3 fL (9.4-12.4); Monocytes # (auto) 0.77 K/uL (0.11-0.59); Monocytes % (auto) 8.2 %; Neutrophils # (auto) 6.75 K/uL (1.40-6.50); Neutrophils % (auto) 71.5 %; Platelet Count 221 K/uL (130-400); RDW Coefficient of Variation 12.6 % (11.5-14.5); RDW Standard Deviation 38.7 fL (36.4-46.3); Red Blood Count 5.38 M/uL (4.70-6.10); White Blood Count 9.44 K/ul (4.8-10.8)
[2024-08-14 11:20] LABS: BUN Creatinine Ratio 14.7 (10-20); Calcium 9.5 mg/dl (8.6-10.3); Chol HDL Ratio 4.6 (0-5); Creatinine Clr Calc Pharmacy 133.1 ml/min; Est GFR (African American) 114.5 ml/min; Est GFR (Non-African American) 98.8 ml/min; Potassium 3.4 mmol/L (3.5-5.1)
--- NOTE | 2024-08-14 11:21 | Hospitalist Progress Note ---
Date of Service August 14, 2024 Assessment & Plan (1) Left pontine stroke: Plan: P/w 4 days of right sided weakness, headache, found to have mitra acute ischemic CVA. Also has evidence on brain MRI of possible cerebral amyloid angiopathy/old hemorrhagic CVAs CTA head/neck negative Has not been to a doctor in at least 5 years and has untreated HTN as well as a new dx of DMII-untreated No arrhythmias thus far on tele HgbA1C elevated at 8.0%-consult clinical nurse educator and recommend f/u with PCP to start either GLP-1 or SGLT2i as outpt in setting of DM and CVA BPs elevated but in setting of recent CVA, will not bring down too quickly- likely add a BP medication tomorrow Continue ASA but would NOT use DAPT given appearance of old hemorrhagic CVAs Started high intensity statin with Crestor Check ECHO with bubble-normal Speech/PT/OT consulted Needs 30 day event monitor after discharge to assess for occult Afib/flutter (2) Dysphagia: Plan: significant at bedside, difficulty swallowing own saliva fortunately, passed video swallow Appreciate Speech consult Needs ongoing Speech therapy for dysphagia and for dysarthria (3) Hypertension: Plan: BPs elevated but keep elevated in setting of recent stroke Can likely start med for BP tomorrow (4) Cerebral amyloid angiopathy: Plan: seen on MRI brain avoid excessive blood thinners but can keep on ASA for ischemic stroke (5) Diabetes mellitus type 2 in obese: Plan: HgbA1C here is 8.0%, has not seen a doctor in years Can likely start on metformin and then add GLP-1 or SGLT2i as outpt check accuchecks (6) Abnormal chest xray: Plan: chronic interstitial lung disease, granulomas seen on CXR Advised f/u with a PULM after discharge Plan Code status: full DVT ppx: SCDs Dispo:continued stay PCU/tele, PT/OT recommending rehab-referrals made Admission and Anticipated Discharge Date Admission Date: August 13, 2024 Subjective Pt still feels difficulty with swallowing even his own saliva and weakness in right arm and leg, worse in the leg. He is hesitant to go to rehab from here but knows he needs it. Having a headache this AM and had some headaches about 1-2 months ago. No SOB, CP. Tele with NSR, PVCs, rates 60-80s Physical Exam Constitutional: WD/WN, vitals as above Eyes: PERRL, conjunctivae normal, anicteric sclerae ENMT: external ear and nose normal, oropharynx normal Respiratory: normal respiratory effort, lungs clear to auscultation Cardiovascular: RRR, no murmur, no edema Neurologic: + focal motor deficit (4/5 RUE,4/5 RLE) and awake; + CN's not intact (intact except right tongue deviation, mild left facial droop) and not confused Psychiatric: A+Ox3, euthymic affect Results & Data Results & Data Vital Signs (Past 12 Hours) Vital Signs Temp Pulse Pulse Resp BP BP Pulse Ox 08/14/24 10:42 36.6 C 78 17 154/82 H 96 08/14/24 08:45 08/14/24 08:02 36.5 C 77 18 176/80 H 96 08/14/24 07:26 70 08/14/24 06:30 63 18 177/81 H 97 08/14/24 05:50 72 20 187/96 H 97 08/14/24 03:21 36.6 C 73 18 154/83 H 93 08/14/24 01:00 67 170/91 H 08/14/24 00:44 78 188/92 H 08/14/24 00:22 08/14/24 00:22 36.5 C 71 18 177/87 H 95 08/14/24 00:22 82 O2 Del Method 08/14/24 10:42 Room Air 08/14/24 08:45 Room Air 08/14/24 08:02 Room Air 08/14/24 07:26 08/14/24 06:30 Room Air 08/14/24 05:50 Room Air 08/14/24 03:21 Room Air 08/14/24 01:00 08/14/24 00:44 08/14/24 00:22 Room Air 08/14/24 00:22 Room Air 08/14/24 00:22 Laboratory Results CBC, BMP, HgbA1C, lipid panel reviewed PG Care Time/CCT Total # of Minutes Spent Total Time Spent with Patient: Total time spent is greater than 50% in coordination of care (as documented) at patient's floor/unit and/or counseling patient: Coding Level of Care Code 90406 SUB INP/OBS CARE 3/50MIN Diagnoses Left pontine stroke I63.9 Dysphagia R13.10 Hypertension I10 Cerebral amyloid angiopathy E85.4; I68.0 Diabetes mellitus type 2 in obese E11.69; E66.9 Abnormal chest xray R93.89
[2024-08-14 11:51] LABS: Estimated Average Glucose 183 mg/dl
--- NOTE | 2024-08-14 14:38 | Pharmacy Report ---
Pharmacy Glycemic Short Note 2 - Date of Service August 14, 2024 - Glycemic Short BSG Results (Last 24 hours): 08/13/24 08/13/24 08/14/24 17:58 18:00 03:10 Glucose 248 H POC Glucose 154 H POC Glucose (other) 253 H 08/14/24 08/14/24 10:10 12:15 Glucose 180 H POC Glucose 166 H POC Glucose (other) OUTPATIENT ANTIDIABETIC REGIMEN: * None * HbA1c 8.0% 08/14/24 ASSESSMENT: * 68 yo M on no home medications (hasn't seen a provider in some time) admitted with CVA. HbA1c resulted this afternoon and is elevated, suggesting likely T2DM * Will initiate low-dose Lantus * Will slightly tighten Novolog now that HbA1c indicates likely diabetes and patient now ordered a diet - parameters will be slightly looser than weight- based moderate stress estimate PLAN FOR INPATIENT GLYCEMIC CONTROL: * Basal insulin * Lantus 15 units SQ x1 * Bolus insulin * NovoLog per scale ACHS or Q6hrs while NPO * Goal Range: Low 110 mg/dL - High 140 mg/dL * Correction Factor: 25 mg/dL/unit * Nutritional / Prandial insulin per carb ratio of 1 unit per 8 grams CHO consumed
--- NOTE | 2024-08-14 14:42 | Pharmacy Report ---
- Date of Service August 14, 2024 - Pharmacy CVA/TIA Medication Review Medications to Prevent Stroke handout has been added to the patients discharge packet. Antiplatelet(s) * Aspirin Cholesterol * High intensity statin: rosuvastatin 20 mg daily DVT Prophylaxis * SCD knee Therapeutic Anticoagulation * No history of Afib/Aflutter noted Type 2 Diabetes * Patient likely has new-onset T2DM per elevated HbA1c, but per Dr. Mcdonald, a diabetes medication with proven CVD benefit will be deferred to their outpatient provider. "Medications to prevent stroke" handout has already been added to the patient's discharge packet, which instructs the patient to follow up with their outpatient provider to evaluate which diabetes medication with proven CVD benefit is best for them
--- NOTE | 2024-08-14 15:06 | Fluoroscopy Report ---
MODIFIED BARIUM SWALLOW CLINICAL HISTORY: dysphagia s/p CVA mitra COMPARISON STUDY: None. FLUOROSCOPY TIME: 2.15 minutes Ka,r: 14.6 mGy. TECHNIQUE: A modified barium swallow was performed in conjunction with Speech Pathology. The patient ingested varying consistencies of barium containing material. Video fluoroscopy was performed. FINDINGS: There was penetration without aspiration with thin liquids. There is possible trace trachea l aspiration with nectar thick liquids. Penetration was noted. There was no aspiration with pudding c onsistency. IMPRESSION: 1. Possible trace tracheal aspiration with nectar thick liquids. No aspiration with remainder of the consistencies. 2. Full recommendations by Speech pathology to follow. ACT 112: Negative or not required by law. Electronically signed by: Mat Blount M.D. 08/14/2024 3:05 PM
[2024-08-14] MEDS: LANTUS PER UNIT CHARGE SC ONE (17:36)
[2024-08-14 19:46] VITALS: RESP 18
--- NOTE | 2024-08-14 22:30 | Electrocardiogram Report ---
Test Reason : Blood Pressure : */* mmHG Vent. Rate : 98 BPM Atrial Rate : 98 BPM P-R Int : 190 ms QRS Dur : 78 ms QT Int : 354 ms P-R-T Axes : 26 21 27 degrees QTcB Int : 451 ms Normal sinus rhythm Normal ECG When compared with ECG of 20-Jul-2015 19:47, No significant change Confirmed by Jose Alejandro Robin ([id number]) on 08/14/2024 10:30:32 PM Referred By: REFERRED SELF Confirmed By: Jose Alejandro Robin
[2024-08-15 06:22] LABS: Basophils # (auto) 0.07 K/uL (0.00-0.20); Basophils % (auto) 0.8 %; Eosinophils # (auto) 0.11 K/uL (0.00-0.50); Eosinophils % (auto) 1.3 %; Hematocrit (blood only) 41.3 % (42.0-52.0); Hemoglobin 14.5 g/dl (14.0-18.0); Immature Granulocytes # (auto) 0.03 K/uL (0.01-0.20); Immature Granulocytes % (auto) 0.3 %; Lymphocytes # (auto) 2.08 K/uL (1.20-3.40); Lymphocytes % (auto) 23.9 %; Mean Corpuscular Hgb Conc 35.1 g/dL (32.0-36.0); Mean Corpuscular Volume 85.3 fL (80.0-100.0); Mean Platelet Volume 9.3 fL (9.4-12.4); Monocytes # (auto) 0.89 K/uL (0.11-0.59); Monocytes % (auto) 10.2 %; Neutrophils # (auto) 5.53 K/uL (1.40-6.50); Neutrophils % (auto) 63.5 %; Platelet Count 164 K/uL (130-400); RDW Coefficient of Variation 12.5 % (11.5-14.5); RDW Standard Deviation 38.6 fL (36.4-46.3); Red Blood Count 4.84 M/uL (4.70-6.10); White Blood Count 8.71 K/ul (4.8-10.8)
[2024-08-15 06:42] LABS: BUN Creatinine Ratio 14.3 (10-20); Calcium 9.2 mg/dl (8.6-10.3); Creatinine Clr Calc Pharmacy 117.5 ml/min; Est GFR (African American) 108.8 ml/min; Est GFR (Non-African American) 93.9 ml/min; Potassium 3.4 mmol/L (3.5-5.1)
[2024-08-15 07:41] VITALS: TEMP 97.9
[2024-08-15] MEDS: LANTUS PER UNIT CHARGE SC SCH (08:39)
[2024-08-15 12:07] VITALS: BP 159/93; O2SAT 95
--- NOTE | 2024-08-15 13:38 | Pharmacy Report ---
Pharmacy Glycemic Short Note 2 - Date of Service August 15, 2024 - Glycemic Short BSG Results (Last 24 hours): 08/14/24 08/14/24 08/15/24 16:20 19:56 05:44 Glucose 142 H POC Glucose 166 H 178 H 08/15/24 08/15/24 07:37 12:02 Glucose POC Glucose 137 H 160 H OUTPATIENT ANTIDIABETIC REGIMEN: * None * HbA1c 8.0% 08/14/24 ASSESSMENT: 08/15 * Stressors stable * BSG's have been well controlled, except for mild post-prandial elevations. * Will slightly tighten CHO ratio * Will scale Lantus ongoing based on BSG. Will remain low dose since AM fasting BSG in goal range. 08/14 * 68 yo M on no home medications (hasn't seen a provider in some time) admitted with CVA. HbA1c resulted this afternoon and is elevated, suggesting likely T2DM * Will initiate low-dose Lantus * Will slightly tighten Novolog now that HbA1c indicates likely diabetes and patient now ordered a diet - parameters will be slightly looser than weight- based moderate stress estimate PLAN FOR INPATIENT GLYCEMIC CONTROL: * Basal insulin * Lantus 10-20 units SQ qAM * Bolus insulin * NovoLog per scale ACHS or Q6hrs while NPO * Goal Range: Low 110 mg/dL - High 140 mg/dL * Correction Factor: 25 mg/dL/unit * Nutritional / Prandial insulin per carb ratio of 1 unit per 7 grams CHO consumed
[2024-08-15] MEDS ORDERED: STROKE PATIENT DISCHARGE STA (14:01)
--- NOTE | 2024-08-15 14:06 | Discharge Summary ---
Discharge Summary Date of Service August 15, 2024 Principal Dx & Hospital Course #1 = Principal Diagnosis (1) Left pontine stroke: Cytotoxic edema P/w 4 days of right sided weakness, headache, found to have mitra acute ischemic CVA. Also has evidence on brain MRI of possible cerebral amyloid angiopathy/old hemorrhagic CVAs CTA head/neck negative Has not been to a doctor in at least 5 years and has untreated HTN as well as a new dx of DMII-untreated No arrhythmias thus far on tele HgbA1C elevated at 8.0%-consult paraeducator and recommend f/u with PCP to start either GLP-1 or SGLT2i as outpt in setting of DM and CVA BPs elevated but in setting of recent CVA, will not bring down too quickly- likely add a BP medication tomorrow Continue ASA but would NOT use DAPT given appearance of old hemorrhagic CVAs Started high intensity statin with Crestor Normal ECHO with bubble-normal Speech/PT/OT consulted Needs 30 day event monitor after discharge to assess for occult Afib/flutter will discharge. (2) Dysphagia: significant at bedside, difficulty swallowing own saliva fortunately, passed video swallow Appreciate Speech consult Needs ongoing Speech therapy for dysphagia and for dysarthria will defer to PCP. (3) Hypertension: BPs elevated but keep elevated in setting of recent stroke (4) Cerebral amyloid angiopathy: seen on MRI brain avoid excessive blood thinners but can keep on ASA for ischemic stroke (5) Diabetes mellitus type 2 in obese: HgbA1C here is 8.0%, has not seen a doctor in years will start metformin at discharge (6) Abnormal chest xray: chronic interstitial lung disease, granulomas seen on CXR Advised f/u with a PULM after discharge Admission HPI Per Admitting Provider 68 y/o male with a PMHx of Crohn's disease s/p partial colectomy and colostomy reversal here for evaluation of right sided deficits. Patient with right sided weakness, facial droop, headache, trouble swallowing/speaking, and "eye cold" started Sunday. Last known well was earlier that day. Has had some improvement in right arm symptoms and facial droop - still present but slightly improved. Unable to lift right leg. Sensation intact. Headache and "eye cold" have resolved. Patient stopped smoking and silver corey about 20 years ago. Has not seen a doctor in some time. Has known hypertension which has not been treated with any medications. Discharge Exam Constitutional WD/WN, vitals as above Eyes PERRL, conjunctivae normal, anicteric sclerae ENMT external ear and nose normal, oropharynx normal Respiratory normal respiratory effort, lungs clear to auscultation Cardiovascular RRR, no murmur, no edema Neurologic + focal motor deficit (4/5 RUE,4/5 RLE) and awake; + CN's not intact (intact except right tongue deviation, mild left facial droop) and not confused Psychiatric A+Ox3, euthymic affect Discharge Plan Discharge Items Patient Disposition: Home - Home Health Services Reason For Visit: STROKE-LIKE SYMPTOMS Discharge Diagnosis: stroke symptoms Activity: Resume your previous activity Non-emergency contact: Primary Care Provider Call non-emergency contact if: you have any medication questions Follow-up/Referrals: Ayla Jacobsen MD [Physician] - 08/19/24 1:00 pm (hospital follow up appointment Will need to schedule establish care appointment at follow up appointment. ) PCP,NO [Primary Care Provider] - Diet: Carb Consistent or DM2 and Heart Healthy Diet Texture: Easy to Chew Addtl Attending Provider Instructions: Will need PCP followup in 1-2 weeks WIll need pulmonary followup for x ray findings. Risk Factors for Stroke: You can reduce your chances of stroke by working with your medical provider to adopt a healthy lifestyle. Some specific ways to lower your chance of stroke are: * If you are a smoker, now is the time to stop smoking cigarettes * If you are diabetic, improve the control of your blood sugars * Avoid excessive amounts of alcohol * Control high blood pressure * Lose weight if you are overweight * Be sure to lead an active lifestyle * Eat a healthy diet low in salt, cholesterol and fat You should know about other risk factors for stroke that you are unable to control. These include: * Age 55 years or older * Male gender * Certain racial groups: , or / * Family History of Stroke, Mini stroke or Heart Attack * Sickle Cell Disease Follow Up: It is important for you to keep your follow up appointments with your medical provider. Who to Call and When: Medical Emergencies: Call 911 immediately if you experience any of the following warning signs and symptoms of Stroke: * Sudden numbness or weakness of the face, arm or leg, especially on one side of the body * Sudden confusion, trouble speaking or understanding * Sudden trouble seeing in one or both eyes * Sudden trouble walking, dizziness, loss of balance or coordination * Sudden severe headache with no cause Do not delay calling 911 if you experience any warning signs or symptoms of a stroke. Delay in seeking medical attention may affect what treatments can be given to you. . Pending Studies at Discharge: No Stand-Alone Forms: [facility], Smoking Cessation, Medications to Prevent Stroke Medications and DC Order Prescriptions: New aspirin 81 mg Tablet,Delayed Release (Dr/Ec) 81 mg PO QAM Qty: 30 0RF rosuvastatin 20 mg Tablet 20 mg PO QAM Qty: 30 0RF metformin 500 mg tablet extended release 24 hr 500 mg PO BID Qty: 30 0RF Rx Instructions: on a full stomach lisinopril 2.5 mg tablet 2.5 mg PO PM Qty: 30 0RF Discharge Orders: Discharge Order (Routine); Ordered 08/15/24 Ordered By: Rohit Das Admission Data Admit Date/Time: 08/13/24 21:46 Attending Provider: Rohit Das Admit Provider: Luz Stinson Primary Care Provider: PCP,NO Other Providers: Agus Thomson; Tenzin Mcgowan; [facility] Hospital Stay Data Consultations 08/13/24 20:44 ED Decision to Admit Stat 08/14/24 07:26 Consult Neurology Routine Diagnostic Imagining Performed 08/13/24 17:45 CT head/brain wo con Stat 08/13/24 17:54 CTA head w con [CT angio head w con] Stat CTA neck with con [CT angio neck with con] Stat 08/14/24 00:25 MR brain wo con Stat 08/14/24 11:30 FL video swallow Routine Pending Results Patient Have Any Pending Studies at Discharge: No Discharge Instructions Given to Patient (Per Discharging Provider) Will need PCP followup in 1-2 weeks WIll need pulmonary followup for x ray findings. Risk Factors for Stroke: You can reduce your chances of stroke by working with your medical provider to adopt a healthy lifestyle. Some specific ways to lower your chance of stroke are: * If you are a smoker, now is the time to stop smoking cigarettes * If you are diabetic, improve the control of your blood sugars * Avoid excessive amounts of alcohol * Control high blood pressure * Lose weight if you are overweight * Be sure to lead an active lifestyle * Eat a healthy diet low in salt, cholesterol and fat You should know about other risk factors for stroke that you are unable to control. These include: * Age 55 years or older * Male gender * Certain racial groups: , or / * Family History of Stroke, Mini stroke or Heart Attack * Sickle Cell Disease Follow Up: It is important for you to keep your follow up appointments with your medical provider. Who to Call and When: Medical Emergencies: Call 911 immediately if you experience any of the following warning signs and symptoms of Stroke: * Sudden numbness or weakness of the face, arm or leg, especially on one side of the body * Sudden confusion, trouble speaking or understanding * Sudden trouble seeing in one or both eyes * Sudden trouble walking, dizziness, loss of balance or coordination * Sudden severe headache with no cause Do not delay calling 911 if you experience any warning signs or symptoms of a stroke. Delay in seeking medical attention may affect what treatments can be given to you. . Total Time Total Time Spent Total Time Spent (In Minutes): 32 Coding Level of Care Code 99693 INP/OBS DISCH >30 MIN Diagnoses Left pontine stroke I63.9 Dysphagia R13.10 Hypertension I10 Cerebral amyloid angiopathy E85.4; I68.0 Diabetes mellitus type 2 in obese E11.69; E66.9 Abnormal chest xray R93.89
[2024-08-15 14:40] VITALS: PULSE 86
--- NOTE | 2024-08-15 22:29 | Electrocardiogram Report ---
Test Reason : Blood Pressure : */* mmHG Vent. Rate : 67 BPM Atrial Rate : 67 BPM P-R Int : 220 ms QRS Dur : 82 ms QT Int : 452 ms P-R-T Axes : 43 54 53 degrees QTcB Int : 477 ms Sinus rhythm with 1st degree A-V block Prolonged QT When compared with ECG of 13-Aug-2024 17:52, IA interval has increased Confirmed by Jose Alejandro Robin ([id number]) on 08/15/2024 10:29:11 PM Referred By: REFERRED SELF Confirmed By: Jose Alejandro Robin
[2024-08-16] MEDS ORDERED: ASPIRIN 81 MG ECTAB PO SCH (09:00)
--- NOTE | 2024-08-18 12:08 | Pharmacy Report ---
Pharmacist Stroke Counseling - Date of Service August 18, 2024 - Scope: Pharmacy has been consulted to provide medication discharge counseling for this patient admitted with [ischemic stroke] [hemorrhagic stroke] [transient ischemic attack] as per the Pharmacist Discharge Counseling for Stroke Patients Pr otocol. - Medications on Discharge: New Rx's Medication Instructions Recorded aspirin 81 mg tablet,delayed 81 mg PO QAM #30 tabs 08/15/24 release lisinopril 2.5 mg tablet 2.5 mg PO PM #30 tabs 08/15/24 metformin 500 mg tablet,extended 500 mg PO BID #30 tabs 08/15/24 release 24 hr rosuvastatin 20 mg tablet 20 mg PO QAM #30 tabs 08/15/24 - Action: The above medications, specifically ones for stroke treatment/prophylaxis, have been reviewed in detail with the patient and/or patient lead customer service representative(s) prior to discharge. This includes indication, common adverse reactions, drug interactions, and medication administration. Medication counseling has been employed using the teach-back method to ensure understanding. - Outcome: The patient and/or patient lead customer service representative(s) have demonstrated understanding of the medications. Additional comments: Called and spoke with patient over the phone to discuss new medications on discharge. Patient reports picking up new medications, no missed doses. Did review each medication with patient and talked about common side effects. Discharge packet lists patient with follow up appt tomorrow. Patient was not aware, but was able to see that it was listed in packet on discharge. He plans to call to double check time of appt tomorrow. Recommended he bring an updated med list with him tomorrow to review with provider. This will be his first visit with outpatient provider to establish care as he previously did not have a PCP. Thank you for allowing pharmacy to be involved in the care of this patient. Please call [phone] with any additional questions
== END 2024-08-15 15:52 | disposition home health service (06) | DRG 64 ==
LOC: ED 17:31 → SUATTDRO 21:46 → 4W 21:46